=== PATIENT | male | born 1990 | race Caucasian/White ===

== ENCOUNTER → 2016-06-13 | Outpatient (CLI) | payer BC | LOC: BHSO 14:19 | DX: F33.1 Major depressive disorder, recurrent, moderate (principal) ==

== ENCOUNTER → 2016-07-27 | Outpatient (CLI) | payer BC | LOC: BHSO 14:30 | DX: F33.41 Major depressive disorder, recurrent, in partial remission (principal) ==

== ENCOUNTER → 2016-08-31 | Outpatient (CLI) | payer BC | LOC: BHSO 14:39 | DX: F33.42 Major depressive disorder, recurrent, in full remission (principal) ==

== ENCOUNTER → 2016-12-05 | Outpatient (CLI) | payer BC | LOC: COL.RAD 14:23 | DX: M25.562 Pain in left knee (principal); G89.29 Other chronic pain ==

== ENCOUNTER → 2017-01-11 | Outpatient (CLI) | payer BC | LOC: BHSO 08:47 | DX: F33.42 Major depressive disorder, recurrent, in full remission (principal) ==

== ENCOUNTER 2017-07-04 15:45 | Emergency (ER) | payer BC ==
[~2017-07-04] VITALS: Ht 185.4 cm; Wt 93.8 kg
[2017-07-04 15:50] VITALS: TEMP 97.4
[2017-07-04] MEDS ORDERED: EFFEXOR-XR150 MG PO (16:06)
[2017-07-04 16:28] LABS: GRAN % 75.3 % (42.2-75.2); HEMATOCRIT 40.8 % (42.0-52.0); HEMOGLOBIN 14.1 g/dl (13.5-18.0); MEAN CELL VOLUME 87 fl (80.0-100.0); MEAN CORPUSCULAR HEMOGLOBIN 30 pg (27.0-31.0); MEAN CORPUSCULAR HGB CONC 35 g/dl (33.0-37.0); MEAN PLATELET VOLUME 9.4 fl (7.4-10.4); MONO % 4.6 % (1.7-9.3); PLATELET COUNT 274 K/mm3 (130-400); RED BLOOD COUNT 4.69 M/mm3 (4.20-5.60)
[2017-07-04 16:29] LABS: BASO % 0.4 % (0.0-2.0); EOS % 0.4 % (0-4.0); GRAN # 8.4 (1.4-6.5); LYMPH # 2.1 (1.2-3.4); MONO # 0.5 (0.1-0.6)
[2017-07-04 17:01] LABS: ALBUMIN 4.4 gm/dL (3.5-5.0); BILIRUBIN,TOTAL 1.1 mg/dL (0.0-1.0); CALCIUM 9.8 mg/dL (8.4-10.2); CREATININE, serum 1.03 mg/dL (0.66-1.25); POTASSIUM 4.2 mmol/L (3.4-5.0); TOTAL PROTEIN 7.6 gm/dL (6.4-8.2)
[2017-07-04 18:45] VITALS: BP 113/79; PULSE 84
== END 2017-07-04 18:53 | disposition home or self-care (01) ==
LOC: COL.ER 15:45
PROVIDERS: Physician Assistant
DX: R55 Syncope and collapse (principal); R41.82 Altered mental status, unspecified
CPT/HCPCS: J2405; J7030

== ENCOUNTER → 2017-07-19 | Outpatient (CLI) | payer BC ==
[~2017-07-19] MED LIST: EFFEXOR-XR150 MG PO
== END ==
LOC: BHSO 08:53
DX: F33.42 Major depressive disorder, recurrent, in full remission (principal)
CPT/HCPCS: G0463

== ENCOUNTER → 2017-11-15 | Outpatient (CLI) | payer BC | LOC: BHSO 09:22 | DX: F33.42 Major depressive disorder, recurrent, in full remission (principal) | CPT/HCPCS: G0463 ==

== ENCOUNTER → 2018-05-16 | Outpatient (CLI) | payer BC | LOC: BHSO 08:48 | DX: F41.1 Generalized anxiety disorder (principal) | CPT/HCPCS: G0463 ==

== ENCOUNTER → 2018-08-06 | Outpatient (CLI) | payer BC | LOC: BHSO 08:41 | DX: F33.42 Major depressive disorder, recurrent, in full remission (principal) | CPT/HCPCS: G0463 ==

== ENCOUNTER → 2019-02-11 | Outpatient (CLI) | payer BC | LOC: BHSO 08:01 | DX: F33.42 Major depressive disorder, recurrent, in full remission (principal) | CPT/HCPCS: G0463 ==